=== PATIENT | female | born 1985 | race African-American/Black ===

== ENCOUNTER 2021-10-24 16:30 | Outpatient (REF) | payer OTHER, SELFPAY ==
[2021-10-25 05:24] LABS: CT PCR NOT DETECTED (Not Detect.); NG PCR NOT DETECTED (Not Detect.)
== END 2021-10-24 16:31 | disposition home or self-care (01) ==
LOC: HO.LNP 16:30
PROVIDERS: Visit Provider Nurse Practitioner Family
DX: Z11.3 Encounter for screening for infections with a predominantly sexual mode of transmission (principal); Z91.89 Other specified personal risk factors, not elsewhere classified
CPT/HCPCS: 87491; 87591

== ENCOUNTER 2022-01-22 14:19 | Outpatient (REF) | payer OTHER, SELFPAY ==
[2022-01-22 16:50] LABS: MANUAL DIFF FLAG NO
[2022-01-22 17:06] LABS: Alanine Aminotransferase 17 U/L (0-31); Albumin Level 4.4 g/dL (3.5-5.0); Alkaline Phosphatase 44 U/L (39-117); Anion Gap 11 (12-20); Aspartate Amino Transferase 16 U/L (5-31); Bilirubin Total 0.6 mg/dL (0.0-1.0); Blood Urea Nitrogen 14 mg/dL (9-16); Calcium 9.5 mg/dL (8.4-10.2); Carbon Dioxide 27 mmol/L (22-29); Chloride 107 mmol/L (96-108); Cholesterol 151 mg/dL; Estimated Glomerular Filt Rate > 60; Glucose Fasting 93 mg/dL (60-99); HDL Cholesterol 46 mg/dL; LDL Cholesterol Calculated 81 mg/dl; Potassium 4.2 mmol/L (3.3-5.1); Sodium 141 mmol/L (135-145); Total Protein 7.9 g/dL (6.5-8.0); Triglycerides 121 mg/dL
[2022-01-22 17:28] LABS: TSH reflex Free T4 2.13 uIU/mL (0.32-4.0)
[2022-01-22 17:44] LABS: Basophils Percent Auto 0.3 % (0-2); Eosinophils Percent Auto 0.3 % (0-4); Hematocrit 43.2 % (37.0-47.0); Hemoglobin 13.6 g/dl (12.0-16.0); Imm Gran Abs Auto 0.01 X10*3/uL (0.00-0.03); Imm Gran Pct Auto 0.1 % (0.0-0.4); Lymphocytes Absolute Auto 2.9 X10*3/uL (1.2-4.9); Mean Corpuscular HGB Conc 31.5 g/dl (31.0-35.0); Mean Corpuscular Hemoglobin 28.6 pg (27.0-33.0); Mean Corpuscular Volume 90.9 fL (80.0-98.0); Mean Platelet Volume 10.4 fL (9.4-12.3); Monocytes Absolute Auto 0.5 X10*3/uL (0.1-1.2); Monocytes Percent Auto 6.6 % (2-11); Neutrophils Absolute Auto 3.8 x10*3/uL (2.0-8.3); Neutrophils Percent Auto 52.7 % (45-73); Platelet Count 308 X10*3/uL (160-400); Red Blood Count 4.75 X10*6/uL (4.20-5.50); Red Cell Distribution Width 13.4 % (11.0-16.0); White Blood Count 7.1 X10*3/uL (4.8-10.8)
[2022-01-23 07:39] LABS: Syphilis Screen Nonreactive (Nonreactive)
[2022-01-23 07:51] LABS: HIV AB/AG Nonreactive (Nonreactive); HIV Num 1 0.06 S/CO (0.00-0.99)
[2022-01-23 08:43] LABS: HBS Num1 401.19 mIU/mL (0-7.99); ~Hepatitis B Surface Antibody REACTIVE (Nonreactive)
[2022-01-23 08:43] LABS: BV Int Neg Control Negative (Negative); BV Int Pos Control Positive (Positive)
[2022-01-23 17:25] LABS: Herpes Simplex Type 2 IgG >23.00 index
[2022-01-24 09:39] LABS: ~HepC Num1 0.23 S/CO (0.00-0.79); ~Hepatitis C Antibody Nonreactive (Nonreactive)
== END 2022-01-22 14:20 | disposition home or self-care (01) ==
LOC: HO.HMGCLDS 14:19
PROVIDERS: Visit Provider Internal Medicine
DX: Z11.4 Encounter for screening for human immunodeficiency virus [HIV] (principal); F31.30 Bipolar disorder, current episode depressed, mild or moderate severity, unspecified; L30.4 Erythema intertrigo; N89.8 Other specified noninflammatory disorders of vagina; Z91.89 Other specified personal risk factors, not elsewhere classified; Z76.89 Persons encountering health services in other specified circumstances; Z91.51 Personal history of suicidal behavior
CPT/HCPCS: 36415; 80053; 80061; 84443; 85025; 86695; 86696; 86706; 86780; 86803; 87389; 87480; 87510; 87660

== ENCOUNTER 2022-01-23 15:44 | Outpatient (REF) | payer OTHER, SELFPAY | END 2022-01-23 15:45 | disposition home or self-care (01) | LOC: HO.LAB 15:44 | PROVIDERS: Visit Provider Internal Medicine | DX: Z13.89 Encounter for screening for other disorder (principal) ==